=== PATIENT | female | born 1990 | race Hispanic/Latino ===

== ENCOUNTER 2016-08-18 00:32 | Inpatient (IN) | payer OTHER ==
--- NOTE | 2016-08-18 00:55 | Emergency Department Report ---
History of Present Illness - General Chief Complaint: Medical Clearance Stated Complaint: MED CLEARANCE Time Seen by Provider: 08/18/16 00:40 Source: EMS Mode of arrival: Stretcher Limitations: No Limitations - History of Present Illness Initial Comments: Patient is a 25-year-old female with a history of drug abuse presenting status post heroin overdose. Patient was awaiting to be seen at [facility] when she admittedly injected heroin, became high and altered. EMS was called for patient to be brought to the ER for evaluation. En route patient reports she did do heroin refusing Narcan. Otherwise no other history reported - Related Data Allergies Allergy/AdvReac Type Severity Reaction Status Date / Time No Known Allergies Allergy Unverified 08/18/16 00:43 ED Review of Systems ROS: Stated complaint: MED CLEARANCE Other details as noted in HPI Comment: Unobtainable due to pts medical conditions ED Past Medical Hx - Past Medical History Previous Medical History?: No - Surgical History Past Surgical History?: No - Social History Smoking Status: Current Every Day Smoker Substance Use Type: Alcohol, Heroin ED Physical Exam - General Limitations: No Limitations, Altered Mental Status, Other (heroin abuse) General appearance: in no apparent distress, appears intoxicated, other (easily arousable, following commands and answering questions) - Head Head exam: Present: atraumatic, normocephalic - Eye Eye exam: Present: EOMI, other (pinpoint pupils). Absent: scleral icterus, conjunctival injection, nystagmus Pupils: Present: miosis. Absent: irregular, unequal - ENT ENT exam: Present: mucous membranes moist - Neck Neck exam: Present: normal inspection - Respiratory Respiratory exam: Present: normal lung sounds bilaterally. Absent: respiratory distress, wheezes, rales, rhonchi - Cardiovascular Cardiovascular Exam: Present: regular rate, normal rhythm, normal heart sounds. Absent: irregular rhythm, systolic murmur, diastolic murmur, rubs, gallop - GI/Abdominal GI/Abdominal exam: Present: soft, normal bowel sounds. Absent: distended, tenderness, guarding, rebound, rigid - Extremities Exam Extremities exam: Present: normal inspection, full ROM, normal capillary refill , other (track boo). Absent: tenderness, pedal edema, joint swelling, calf tenderness - Back Exam Back exam: Present: normal inspection - Neurological Exam Neurological exam: Present: altered, CN II-XII intact, other (patient high on heroin). Absent: motor sensory deficit - Psychiatric Psychiatric exam: Present: other (heroin intoxication) - Skin Skin exam: Present: warm, dry, intact, normal color. Absent: rash ED Course Vital Signs 08/18/16 00:48 Pulse Rate 101 H Respiratory 17 Rate Blood Pressure 91/43 [Left] O2 Sat by Pulse 96 Oximetry - Reevaluation(s) Reevaluation #1: 08/18/16 04:30 Pt easily arousable. Pt is tachycardic in the 120's in SR on the monitor. Pt has no complaints. Ordered 2L NS IVF bolus. Reevaluation #2: 08/18/16 06:06 Pt now has fever of 103, will remove blankets. Pt likely having a withdrawal response after reviewed UDS. Ordered ativan 2mg IVP. Continuing IVF Ordered blood cultures 08/18/16 06:09 Case turned over to Dr Kovacs ED Medical Decision Making - Lab Data Result diagrams: 08/18/16 00:58 08/18/16 00:58 - EKG Data -: EKG Interpreted by Me - EKG Data 08/18/16 04:53 Time 442. Sinus tachycardia at 1 29 bpm, QTC 433 ms, left atrial enlargement, no ST changes, no STEMI - Medical Decision Making Given fever, tachycardia and drug history will order antibiotics Vanco and Zosyn to cover for sepsis/endocarditis, awaiting CXR and ordered echo. Case d/w Hospitalist will admit tele Critical care attestation.: If time is entered above; I have spent that time in minutes in the direct care of this critically ill patient, excluding procedure time. ED Disposition Clinical Impression: Anemia, Fever, Polysubstance abuse Disposition: OP ADMITTED IP TO THIS HOSP Is pt being admited?: Yes Condition: Stable
[2016-08-18 01:32] LABS: Anion Gap 18 mmol/L; BUN/Creatinine Ratio 18.33; Blood Urea Nitrogen 11 mg/dL (7-17); Carbon Dioxide 24 mmol/L (22-30); Chloride 99.4 mmol/L (98-107); Glucose 90 mg/dL (65-100); Potassium 3.5 mmol/L (3.6-5.0); Sodium 138 mmol/L (137-145)
[2016-08-18 01:38] LABS: Basophils % (Auto) 0.3 % (0.0-1.8); Eosinophils % (Auto) 0.3 % (0.0-4.3); Hematocrit 25.7 % (30.3-42.9); Hemoglobin 8.4 gm/dl (10.1-14.3); Mean Corpuscular HGB Conc 33 % (30-34); Mean Corpuscular Volume 77 fl (79-97); Platelet Count 203 K/mm3 (140-440); Red Blood Count 3.33 M/mm3 (3.65-5.03); Red Cell Distribution Width 15.9 % (13.2-15.2); White Blood Count 7.2 K/mm3 (4.5-11.0)
[2016-08-18 01:41] LABS: Mean Corpuscular Hemoglobin 25 pg (28-32)
[2016-08-18] MEDS ORDERED: NACL 0.9% 1000 ML 1,000 ML IV ONE ×2 (04:26→05:22)
[2016-08-18 05:06] LABS: Urine Drugs of Abuse Note Disclamer
[2016-08-18 05:25] LABS: Bilirubin,Urine NEG (Negative); Blood,Urine NEG (Negative); Ketones,Urine NEG (Negative); Leukocyte Esterase,Urine SM (Negative); Mucus,Urine 1+ /HPF; Nitrite,Urine NEG (Negative); Urobilinogen,Urine < 2.0 mg/dL (<2.0)
[2016-08-18] MEDS ORDERED: ATIVAN IV ONE ×2 (06:06→20:51)
[2016-08-18] MEDS ORDERED: ZOSYN/NS 4.5GM/100ML 4.5 GM/100 ML VIAL IV ONE (06:08)
--- NOTE | 2016-08-18 07:31 | XRay Report ---
AP CHEST: HISTORY: Fever No comparison. Patchy bilateral lung infiltrates are identified, right greater than left. No large pleural effusion or pneumothorax. Heart and mediastinal structures are within normal limits. Normal bony structures. There is an approximate 8 cm linear structure overlying the mediastinum which is presumably external to the patient. IMPRESSION: Bilateral lung infiltrates.
--- NOTE | 2016-08-18 08:20 | History and Physical Report ---
History of Present Illness Date of examination: 08/18/16 Date of admission: 08/18/2016 Chief complaint: Fever and drug overdose History of present illness: Patient is a 25-year-old female with a history of drug abuse. She presented to Ed with Fever of 103.3. and status post heroin overdose. Patient alert and oriented to self somewhat she was able to describe her pain. She reported pain in left side midway down her ribcage the axilla. Pain is dull about 10/10 in severity and worsen with movement and cough and breathing. Patient also stated that she uses heroin injection on regular basis. Also some crusty lesions noted on her face and upper neck Past History Past Medical History: No medical history Past Surgical History: No surgical history Social history: single, smoking, alcohol abuse, IV drug use, full code Family history: no significant family history Medications and Allergies Allergies Allergy/AdvReac Type Severity Reaction Status Date / Time No Known Allergies Allergy Verified 08/18/16 09:04 Home Medications Medication Instructions Recorded Confirmed Last Taken Type Unobtainable 08/18/16 08/18/16 Unknown History Review of Systems Constitutional: fever, chills, weakness, malaise, lethargy, no weight loss, no weight gain, no sweats, no poor appetite, no daytime sleepiness, no chronic pain Ears, nose, mouth and throat: no ear pain, no tinnitis, no decreased hearing, no nose pain, no nasal discharge Breasts: normal Cardiovascular: no chest pain, no orthopnea, no palpitations, no edema, no syncope, no lightheadedness Respiratory: cough, shortness of breath, no hemoptysis Gastrointestinal: no abdominal pain, no nausea, no vomiting, no diarrhea Genitourinary Female: no pelvic pain, no flank pain, no urinary frequency, no urgency Musculoskeletal: no neck stiffness, no neck pain, no arm numbness/tingling Integumentary: lesions Neurological: no head injury, no weakness, no parathesias, no numbness Psychiatric: no anxiety, no change in sleep habits, no sleep disturbances, no suicidal ideation Endocrine: no cold intolerance, no heat intolerance Hematologic/Lymphatic: no easy bruising, no easy bleeding Exam - Constitutional Vitals: Temp Pulse Resp BP Pulse Ox 103.0 F H 119 H 27 H 111/55 100 08/18/16 05:45 08/18/16 06:30 08/18/16 06:30 08/18/16 06:30 08/18/16 06:30 General appearance: Present: mild distress - EENT Eyes: Present: PERRL ENT: hearing intact, clear oral mucosa - Neck Neck: Present: supple, normal ROM - Respiratory Respiratory effort: normal - Cardiovascular Heart Sounds: Present: S1 & S2. Absent: rub, click - Extremities Extremities: pulses symmetrical, No edema Peripheral Pulses: within normal limits - Abdominal General gastrointestinal: Present: soft, non-tender, non-distended, normal bowel sounds - Rectal Rectal Exam: deferred - Integumentary Integumentary: Present: clear, warm, dry - Musculoskeletal Musculoskeletal: gait normal, strength equal bilaterally - Psychiatric Psychiatric: appropriate mood/affect, intact judgment & insight - Neurologic Neurologic: CNII-XII intact, moves all extremities Results - Labs CBC & Chem 7: 08/18/16 00:58 08/18/16 00:58 Labs: Laboratory Last Values WBC 7.2 K/mm3 (4.5-11.0) 08/18/16 00:58 RBC 3.33 M/mm3 (3.65-5.03) L 08/18/16 00:58 Hgb 8.4 gm/dl (10.1-14.3) L 08/18/16 00:58 Hct 25.7 % (30.3-42.9) L 08/18/16 00:58 MCV 77 fl (79-97) L 08/18/16 00:58 MCH 25 pg (28-32) L 08/18/16 00:58 MCHC 33 % (30-34) 08/18/16 00:58 RDW 15.9 % (13.2-15.2) H 08/18/16 00:58 Plt Count 203 K/mm3 (140-440) 08/18/16 00:58 Lymph % (Auto) 11.3 % (13.4-35.0) L 08/18/16 00:58 [place] % (Auto) 8.2 % (0.0-7.3) H 08/18/16 00:58 Eos % (Auto) 0.3 % (0.0-4.3) 08/18/16 00:58 Baso % (Auto) 0.3 % (0.0-1.8) 08/18/16 00:58 Lymph # 0.8 K/mm3 (1.2-5.4) L 08/18/16 00:58 [place] # 0.6 K/mm3 (0.0-0.8) 08/18/16 00:58 Eos # 0.0 K/mm3 (0.0-0.4) 08/18/16 00:58 Baso # 0.0 K/mm3 (0.0-0.1) 05 00:58 Seg Neutrophils % 79.9 % (40.0-70.0) H 08/18/16 00:58 Seg Neutrophils # 5.7 K/mm3 (1.8-7.7) 08/18/16 00:58 Sodium 138 mmol/L (137-145) 08/18/16 00:58 Potassium 3.5 mmol/L (3.6-5.0) L 08/18/16 00:58 Chloride 99.4 mmol/L (98-107) 08/18/16 00:58 Carbon Dioxide 24 mmol/L (22-30) 08/18/16 00:58 Anion Gap 18 mmol/L 08/18/16 00:58 BUN 11 mg/dL (7-17) 08/18/16 00:58 Creatinine 0.6 mg/dL (0.7-1.2) L 08/18/16 00:58 Estimated GFR > 60 ml/min 08/18/16 00:58 BUN/Creatinine Ratio 18.33 % 08/18/16 00:58 Glucose 90 mg/dL (65-100) 08/18/16 00:58 Calcium 8.0 mg/dL (8.4-10.2) L 08/18/16 00:58 HCG, Qual Negative (Negative) 08/18/16 00:58 Urine Color Yellow (Yellow) 08/18/16 Unknown Urine Turbidity Clear (Clear) 08/18/16 Unknown Urine pH 5.0 (5.0-7.0) 08/18/16 Unknown Ur Specific [place] 1.017 (1.003-1.030) 08/18/16 Unknown Urine Protein 30 mg/dl mg/dL (Negative) 08/18/16 Unknown Urine Glucose (UA) Neg mg/dL (Negative) 08/18/16 Unknown Urine Ketones Neg mg/dL (Negative) 08/18/16 Unknown Urine Blood Neg (Negative) 08/18/16 Unknown Urine Nitrite Neg (Negative) 08/18/16 Unknown Urine Bilirubin Neg (Negative) 08/18/16 Unknown Urine Urobilinogen < 2.0 mg/dL (<2.0) 08/18/16 Unknown Ur Leukocyte Esterase Sm (Negative) 08/18/16 Unknown Urine WBC (Auto) 8.0 /HPF (0.0-6.0) H 08/18/16 Unknown Urine RBC (Auto) 4.0 /HPF (0.0-6.0) 08/18/16 Unknown U Epithel Cells (Auto) 4.0 /HPF (0-13.0) 08/18/16 Unknown Hyaline Casts 2 /LPF 08/18/16 Unknown Urine Mucus 1+ /HPF 08/18/16 Unknown Salicylates < 0.3 mg/dL (2.8-20.0) L 08/18/16 00:58 Urine Opiates Screen Presumptive positive 08/18/16 Unknown Urine Methadone Screen Presumptive negative 08/18/16 Unknown Acetaminophen < 15.0 ug/mL (10.0-30.0) 08/18/16 00:58 Ur Barbiturates Screen Presumptive negative 08/18/16 Unknown Ur Phencyclidine Scrn Presumptive negative 08/18/16 Unknown Ur Amphetamines Screen Presumptive positive 08/18/16 Unknown U Benzodiazepines Scrn Presumptive positive 08/18/16 Unknown Urine Cocaine Screen Presumptive positive 08/18/16 Unknown U Marijuana (THC) Screen Presumptive positive 08/18/16 Unknown Drugs of Abuse Note Disclamer 08/18/16 Unknown Plasma/Serum Alcohol < 0.01 gm% (0-0.07) 08/18/16 00:58 - Imaging and Cardiology Chest x-ray: pending (Bilateral Lung infiltrates) Abdominal x-ray: pending Assessment and Plan Assessment and plan: ASSESSMENT/PLAN 1. Sepsis Chest X-ray shows bilateral lung infiltration serial of blood cultures done Lactate level done waiting for the result Urine cultures shows high WBC 8.0 start on Abx PT/INR done waiting for result ID consulted 2. Tachycardia HR 120's given 2L NS bolus in the ED patient on continues cardiac monitoring Time Clerk consulted 3. Drug overdose Ativan per [facility] protocol 4. Endocarditis Started on Abx Fever 103.3 on Tylenol to reduce fever Echo done Time Clerk consulted ID consulted 5. Anemia monitor H&H and transfuse PRBC for Hemoglobin <7 5.Hypotension BP on the 90's systolic given 500 NS bolus VTE Prophylaxis Lovonax and Protonix Patient Full Code
[2016-08-18] MEDS ORDERED: NACL 0.9% 500 ML 500 ML IV ONE ×2 (09:00→13:14)
[2016-08-18] MEDS ORDERED: MILK OF MAGNESIA PO PRN (09:00)
[2016-08-18] MEDS ORDERED: NACL 0.9% 500 ML 500 ML ONE ×2 (09:02→13:27)
--- NOTE | 2016-08-18 09:25 | Admit Criteria Form ---
Admission Criteria Documentation: SEPSIS and OTHER FEBRILE ILLNESS, W/O FOCAL INFECTION Clinical Indications for Admission to Inpatient Care ( Place 'X' for any and all applicable criteria): Admission is indicated for ANY ONE of the following (1)(2)(3)(4): [ ] I. Bacteremia [X]II. Suspected or identified specific infection requiring hospitalization (eg, meningitis, endocarditis) [ ]III. Hemodynamic instability [ ]IV. Altered mental status [ ]V. Failure or unavailability of outpatient antimicrobial treatment [ ]. Hypoxemia [ ]VII. Seizures [ ]VIII. High-risk febrile neutropenia [X]IX. Need for parenteral antibiotic in patient who is likely to abuse vascular access device (eg, injection drug user) [A](7) [ ]X. Temperature greater than 104.9 degrees F (40.5 degrees C) (oral) [X ]XI. Inpatient admission required rather than observation care because of ANY ONE of the following: [ ]1) Specific infection identified that is too severe for outpatient treatment or observation care trial [ ]2) Metabolic disorder (eg, hypoglycemia, hyperglycemia, metabolic acidosis) that is severe or persistent [X]3) Temperature greater than 103.1 degrees F (39.5 degrees C) ( oral) that is not responsive to observation care treatment [ ]4) IV fluid to replace significant ongoing (eg, for over 24 hours) losses (> 3 L/m2 per day) [ ]5) Supplemental oxygen or respiratory treatments for over 24 hours that is performable only in acute inpatient setting [ ]6) Parenteral nutrition regimen need that must be implemented on inpatient basis [ ]7) Strict or protective (eg, laminar flow) isolation [ ]8) Other condition, treatment or monitoring requiring inpatient admission Extended stay beyond goal length of stay may be needed for(1)(3) [ ]a) Sepsis or septic shock(22) [ ]b) Positive blood cultures [ ]c) Insufficient oral intake [ ]d) High-risk febrile neutropenia(29)(30) [ ]e) Continued fever and clinical instability [ ]f) Clinically active comorbid illness (e.g,heart failure, renal failure , diabetes) The original [facility] [email or web address] content created by Ruchi Ahuja has been revised. The portions of the content which have been revised are identified through the use of italic text or in bold, and Ruchi [employer]ines has neither reviewed nor approved the modified material. All other unmodified content is copyright [facility]. Please see references footnoted in the original [facility] edition 2016 Admission Criteria Met: Yes
[2016-08-18] MEDS ORDERED: ZOFRAN IV PRN (09:30)
[2016-08-18] MEDS: LOVENOX SUB-Q SCH (09:43)
[2016-08-18] MEDS: ZOSYN/NS 4.5GM/100ML 4.5 GM/100 ML VIAL IV SCH ×3 (09:43→19:22)
[2016-08-18] MEDS: TYLENOL PO PRN (09:44)
[2016-08-18] MEDS: D5NS 1,000 ML IV SCH (09:45)
[2016-08-18] MEDS ORDERED: DULCOLAX PR PRN (10:00)
[2016-08-18] MEDS ORDERED: PROTONIX IV ONE (10:00)
[2016-08-18] MEDS ORDERED: VANCOMYCIN PHARMACY TO DOSE IV SCH (12:00)
[2016-08-18] MEDS ORDERED: VANCOMYCIN 1,250 MG in NACL 0.9% 250ML 250 ML IV ONE (12:30)
--- NOTE | 2016-08-18 14:36 | Consultation ---
History of Present Illness Consult date: 08/18/16 Consult reason: other (Abnormal echo) History of present illness: This is a 25yr old female with a history of polysubstance abuse who was sent here after she admittedly injected herself with heroin and became altered. Her initial ECG shows a sinus tachycardia. An echocardiogram done today demonstrates a normal systolic function but there a mass is visualized in the right atrium thus this cardiac consultation. Past History Social history: single, smoking, alcohol abuse, IV drug use, full code Family history: no significant family history Medications and Allergies Allergies Allergy/AdvReac Type Severity Reaction Status Date / Time No Known Allergies Allergy Verified 08/18/16 09:04 Home Medications Medication Instructions Recorded Confirmed Last Taken Type Unobtainable 08/18/16 08/18/16 Unknown History Active Meds: Active Medications Acetaminophen (Tylenol) 650 mg PO Q4H PRN PRN Reason: Pain MILD(1-3)/Fever >100.5/SHIPMAN Last Admin: 08/18/16 09:44 Dose: 650 mg Bisacodyl (Dulcolax) 10 mg [place] QDAY PRN PRN Reason: Constipation unrelieved by MOM Enoxaparin Sodium (Lovenox) 40 mg SUB-Q QDAY MURALI Last Admin: 08/18/16 09:43 Dose: 40 mg Dextrose/Sodium Chloride (D5ns) 1,000 mls @ 75 mls/hr IV DIRECT MURALI Last Admin: 08/18/16 09:45 Dose: 75 mls/hr Piperacillin Sod/Tazobactam Sod (Zosyn/Ns 4.5gm/100ml) 4.5 gm in 100 mls @ 200 mls/hr IV Q6HR MURALI PRN Reason: Protocol Last Admin: 08/18/16 11:58 Dose: 200 mls/hr Vancomycin HCl (Vancomycin/Ns 1 Gm/250 Ml) 1 gm in 250 mls @ 166.667 mls/hr IV Q12H MURALI Lorazepam (Ativan) 1 mg IV Q4H PRN PRN Reason: Overdose Magnesium Hydroxide (Milk Of Magnesia) 30 ml PO Q4H PRN PRN Reason: Constipation Ondansetron HCl (Zofran) 4 mg IV Q8H PRN PRN Reason: n/v Vancomycin HCl (Vancomycin Pharmacy To Dose) 1 each IV PKCONSULT MURALI PRN Reason: Protocol Physical Examination Vital Signs Pulse Resp BP Pulse Ox 101 H 17 91/43 96 08/18/16 00:48 08/18/16 00:48 08/18/16 00:48 08/18/16 00:48 General appearance: no acute distress Cardiac: Positive: Tachycardia Results 08/18/16 00:58 08/18/16 00:58 Assessment and Plan Polysubstance abuse Fever Anemia Echocardiogram done today shows a normal systolic function but there is a mass visualized in the right atrium. Plan: We will get a JOSE for further cardiac evaluation.
[2016-08-18] MEDS: ATIVAN IV PRN (19:23)
[2016-08-18] MEDS ORDERED: APRESOLINE IV PRN (21:36)
[2016-08-19] MEDS: ZOSYN/NS 4.5GM/100ML 4.5 GM/100 ML VIAL IV SCH ×3 (00:54→11:59)
[2016-08-19] MEDS: D5NS 1,000 ML IV SCH (00:58)
[2016-08-19] MEDS ORDERED: VANCOMYCIN/NS 1 GM/250 ML 1 GM/250 ML BAG IV SCH (01:00)
[2016-08-19] MEDS: ATIVAN IV PRN ×4 (05:52→21:13)
[2016-08-19] MEDS: TYLENOL PO PRN ×2 (06:00→21:12)
[2016-08-19 09:02] LABS: Basophils % (Auto) 0.3 % (0.0-1.8); Eosinophils % (Auto) 0.7 % (0.0-4.3); Hematocrit 27.9 % (30.3-42.9); Mean Corpuscular HGB Conc 32 % (30-34); Mean Corpuscular Volume 78 fl (79-97); Platelet Count 201 K/mm3 (140-440); Red Cell Distribution Width 15.5 % (13.2-15.2); White Blood Count 5.9 K/mm3 (4.5-11.0)
[2016-08-19 09:08] LABS: Mean Corpuscular Hemoglobin 25 pg (28-32)
[2016-08-19 09:12] LABS: INR 1.25 (0.87-1.13)
[2016-08-19 09:13] LABS: Partial Thromboplastin Time 40.5 Sec. (24.2-36.6)
[2016-08-19 09:20] LABS: Alanine Aminotransferase 14 units/L (7-56); Albumin 1.9 g/dL (3.9-5); Albumin/Globulin Ratio 0.6 %; Alkaline Phosphatase 92 units/L (35-129); Anion Gap 17 mmol/L; Blood Urea Nitrogen 8 mg/dL (7-17); Calcium 7.7 mg/dL (8.4-10.2); Carbon Dioxide 21 mmol/L (22-30); Chloride 103.7 mmol/L (98-107); Glucose 84 mg/dL (65-100); Potassium 3.3 mmol/L (3.6-5.0); Sodium 138 mmol/L (137-145)
--- NOTE | 2016-08-19 09:34 | Progress Note ---
Assessment and Plan Assessment and plan: 25-year-old woman with a past medical history of heroine abuse, IV drug use who presented with fever and confusion 1. Gram Positive septicemia Blood cultures growing gram positive cocci in clusters Appropriate antibiotics, ID has been consulted, suspect endocarditis, workup in place She was initially hypotensive, but responded to fluid resuscitation 2. Suspected endocarditis Follow-up daily blood cultures, follow-up JOSE, ID consult 3. Pneumonia Continue antibiotics as above 4. Metabolic encephalopathy Most likely due to drug intoxication and sepsis, improving Continue 1013 for now 5. Moderate malnutrition Nutrition consult encourage parents diets 6. Hypokalemia Replete and recheck DVT prophylaxis Lovenox History Interval history: No complaints today she denies fevers, denies chills., had nurse reported that she had MRSA in her blood cultures. Hospitalist Physical - Physical exam Narrative exam: General: Patient appears well in no distress HEENT: MMM, EOMI cardiac: S1-S2 heard lungs: clear to auscultation, abdomen: soft, nontender, nondistended bowel sounds positive extremities: no edema clubbing or cyanosis Skin: no rash or lesion Neuro: no focal deficit Psych: appropriate behavior and mood, cognition intact - Constitutional Vitals: Temp Pulse Resp BP Pulse Ox 97.6 F 68 18 101/64 96 08/19/16 03:48 08/19/16 08:35 08/19/16 03:48 08/19/16 03:48 08/19/16 03:48 General appearance: Present: no acute distress Results - Labs CBC & Chem 7: 08/19/16 08:45 08/19/16 08:45 Labs: Laboratory Last Values WBC 5.9 K/mm3 (4.5-11.0) 08/19/16 08:45 RBC 3.60 M/mm3 (3.65-5.03) L 08/19/16 08:45 Hgb 9.0 gm/dl (10.1-14.3) L 08/19/16 08:45 Hct 27.9 % (30.3-42.9) L 08/19/16 08:45 MCV 78 fl (79-97) L 08/19/16 08:45 MCH 25 pg (28-32) L 08/19/16 08:45 MCHC 32 % (30-34) 08/19/16 08:45 RDW 15.5 % (13.2-15.2) H 08/19/16 08:45 Plt Count 201 K/mm3 (140-440) 08/19/16 08:45 Lymph % (Auto) 14.0 % (13.4-35.0) 08/19/16 08:45 [place] % (Auto) 9.5 % (0.0-7.3) H 08/19/16 08:45 Eos % (Auto) 0.7 % (0.0-4.3) 08/19/16 08:45 Baso % (Auto) 0.3 % (0.0-1.8) 08/19/16 08:45 Lymph # 0.8 K/mm3 (1.2-5.4) L 08/19/16 08:45 [place] # 0.6 K/mm3 (0.0-0.8) 08/19/16 08:45 Eos # 0.0 K/mm3 (0.0-0.4) 08/19/16 08:45 Baso # 0.0 K/mm3 (0.0-0.1) 08/19/16 08:45 Seg Neutrophils % 75.5 % (40.0-70.0) H 08/19/16 08:45 Seg Neutrophils # 4.5 K/mm3 (1.8-7.7) 08/19/16 08:45 PT 15.6 Sec. (12.2-14.9) H 08/19/16 08:45 INR 1.25 (0.87-1.13) H 08/19/16 08:45 APTT 40.5 Sec. (24.2-36.6) H 08/19/16 08:45 Sodium 138 mmol/L (137-145) 08/19/16 08:45 Potassium 3.3 mmol/L (3.6-5.0) L 08/19/16 08:45 Chloride 103.7 mmol/L (98-107) 08/19/16 08:45 Carbon Dioxide 21 mmol/L (22-30) L 08/19/16 08:45 Anion Gap 17 mmol/L 08/19/16 08:45 BUN 8 mg/dL (7-17) 08/19/16 08:45 Creatinine 0.4 mg/dL (0.7-1.2) L 08/19/16 08:45 Estimated GFR > 60 ml/min 08/19/16 08:45 BUN/Creatinine Ratio 20.00 % 08/19/16 08:45 Glucose 84 mg/dL (65-100) 08/19/16 08:45 Lactic Acid 0.50 mmol/L (0.7-2.0) L 08/18/16 12:35 Calcium 7.7 mg/dL (8.4-10.2) L 08/19/16 08:45 Total Bilirubin 0.30 mg/dL (0.1-1.2) 08/19/16 08:45 AST 17 units/L (5-40) 08/19/16 08:45 ALT 14 units/L (7-56) 08/19/16 08:45 Alkaline Phosphatase 92 units/L (35-129) 08/19/16 08:45 Total Protein 5.0 g/dL (6.3-8.2) L 08/19/16 08:45 Albumin 1.9 g/dL (3.9-5) L 08/19/16 08:45 Albumin/Globulin Ratio 0.6 % 08/19/16 08:45 HCG, Qual Negative (Negative) 08/18/16 00:58 Urine Color Yellow (Yellow) 08/18/16 Unknown Urine Turbidity Clear (Clear) 08/18/16 Unknown Urine pH 5.0 (5.0-7.0) 08/18/16 Unknown Ur Specific [place] 1.017 (1.003-1.030) 08/18/16 Unknown Urine Protein 30 mg/dl mg/dL (Negative) 08/18/16 Unknown Urine Glucose (UA) Neg mg/dL (Negative) 08/18/16 Unknown Urine Ketones Neg mg/dL (Negative) 08/18/16 Unknown Urine Blood Neg (Negative) 08/18/16 Unknown Urine Nitrite Neg (Negative) 08/18/16 Unknown Urine Bilirubin Neg (Negative) 08/18/16 Unknown Urine Urobilinogen < 2.0 mg/dL (<2.0) 08/18/16 Unknown Ur Leukocyte Esterase Sm (Negative) 08/18/16 Unknown Urine WBC (Auto) 8.0 /HPF (0.0-6.0) H 08/18/16 Unknown Urine RBC (Auto) 4.0 /HPF (0.0-6.0) 08/18/16 Unknown U Epithel Cells (Auto) 4.0 /HPF (0-13.0) 08/18/16 Unknown Hyaline Casts 2 /LPF 08/18/16 Unknown Urine Mucus 1+ /HPF 08/18/16 Unknown Salicylates < 0.3 mg/dL (2.8-20.0) L 08/18/16 00:58 Urine Opiates Screen Presumptive positive 08/18/16 Unknown Urine Methadone Screen Presumptive negative 08/18/16 Unknown Acetaminophen < 15.0 ug/mL (10.0-30.0) 08/18/16 00:58 Ur Barbiturates Screen Presumptive negative 08/18/16 Unknown Ur Phencyclidine Scrn Presumptive negative 08/18/16 Unknown Ur Amphetamines Screen Presumptive positive 08/18/16 Unknown U Benzodiazepines Scrn Presumptive positive 08/18/16 Unknown Urine Cocaine Screen Presumptive positive 08/18/16 Unknown U Marijuana (THC) Screen Presumptive positive 08/18/16 Unknown Drugs of Abuse Note Disclamer 08/18/16 Unknown Plasma/Serum Alcohol < 0.01 gm% (0-0.07) 08/18/16 00:58
[2016-08-19] MEDS ORDERED: K-DUR PO NR (10:00)
--- NOTE | 2016-08-19 11:35 | Progress Note ---
Assessment and Plan Polysubstance abuse Fever Anemia MRSA bacteremia Echocardiogram done today shows a normal systolic function but there is a mass visualized in the right atrium. Plan: JOSE has been rescheduled for tomorrow morning. Patient agrees to proceed. Subjective Date of service: 08/19/16 Interval history: Patient is resting in bed comfortably. Sitter at bedside. She has no chest pain or shortness of breath. Objective Vital Signs Temp Pulse Pulse Resp BP BP Pulse Ox 08/19/16 09:54 97.8 F 66 18 108/71 96 08/19/16 08:35 68 08/19/16 03:48 97.6 F 67 18 101/64 96 08/19/16 00:27 98.9 F 86 18 87/55 90 08/18/16 21:07 98.1 F 78 18 99/76 99 08/18/16 21:06 116 H 20 92/57 94 08/18/16 20:15 95 08/18/16 20:00 106 H 08/18/16 18:30 89 26 H 98/63 99 08/18/16 18:15 84 25 H 98/60 100 08/18/16 18:00 85 25 H 100/59 100 08/18/16 17:45 84 25 H 98/63 08/18/16 17:30 83 26 H 94/56 100 08/18/16 17:15 83 25 H 92/53 100 08/18/16 17:00 89 23 97/56 100 08/18/16 16:45 83 25 H 97/56 08/18/16 16:30 84 26 H 91/55 100 08/18/16 16:15 82 26 H 91/54 100 08/18/16 16:00 83 27 H 95/52 08/18/16 15:45 84 24 93/55 99 08/18/16 15:30 82 22 93/55 98 08/18/16 15:15 78 24 95/55 100 08/18/16 15:00 78 23 93/55 100 08/18/16 14:45 74 19 95/56 100 08/18/16 14:30 77 21 91/56 100 08/18/16 14:15 79 23 92/53 08/18/16 14:00 79 22 92/53 08/18/16 13:45 80 22 91/51 08/18/16 13:30 83 24 91/48 99 08/18/16 13:15 83 22 91/48 99 08/18/16 13:00 85 25 H 88/47 99 08/18/16 12:45 80 23 93/52 08/18/16 12:30 90 25 H 89/46 08/18/16 12:15 90 23 92/47 98 08/18/16 12:00 98 F 91 H 22 92/45 98 08/18/16 11:45 92 H 23 93/44 99 - Physical Examination General: No Apparent Distress HEENT: Positive: PERRL Neck: Positive: trachea midline Cardiac: Positive: Reg Rate and Rhythm - Labs and Meds Cardiac Enzymes 08/19/16 Range/Units 08:45 AST 17 (5-40) units/L Coagulation 08/19/16 Range/Units 08:45 PT 15.6 H (12.2-14.9) Sec. INR 1.25 H (0.87-1.13) APTT 40.5 H (24.2-36.6) Sec. CBC 08/19/16 Range/Units 08:45 WBC 5.9 (4.5-11.0) K/mm3 RBC 3.60 L (3.65-5.03) M/mm3 Hgb 9.0 L (10.1-14.3) gm/dl Hct 27.9 L (30.3-42.9) % Plt Count 201 (140-440) K/mm3 Lymph # 0.8 L (1.2-5.4) K/mm3 [place] # 0.6 (0.0-0.8) K/mm3 Eos # 0.0 (0.0-0.4) K/mm3 Baso # 0.0 (0.0-0.1) K/mm3 Comprehensive Metabolic Panel 08/19/16 Range/Units 08:45 Sodium 138 (137-145) mmol/L Potassium 3.3 L (3.6-5.0) mmol/L Chloride 103.7 (98-107) mmol/L Carbon Dioxide 21 L (22-30) mmol/L BUN 8 (7-17) mg/dL Creatinine 0.4 L (0.7-1.2) mg/dL Glucose 84 (65-100) mg/dL Calcium 7.7 L (8.4-10.2) mg/dL AST 17 (5-40) units/L ALT 14 (7-56) units/L Alkaline Phosphatase 92 (35-129) units/L Total Protein 5.0 L (6.3-8.2) g/dL Albumin 1.9 L (3.9-5) g/dL
[2016-08-19] MEDS: LOVENOX SUB-Q SCH (12:00)
--- NOTE | 2016-08-19 12:16 | Consultation ---
History of Present Illness - Reason for Consult Consult date: 08/19/16 Fever - History of Present Illness Ms. Vela is a 25-year-old female PWID presenting with fever to 103 deg F and hypotension. Blood cultures obtained on admission are positive for growth of MRSA. A 2-D echocardiogram shows a suspicious density in the right atrium concerning for infective endocarditis. She is currently on Vancomycin and Zosyn empirically. ID is consulted for further treatment recommendations. Past History Past Medical History: No medical history Past Surgical History: No surgical history Social history: single, smoking, alcohol abuse, IV drug use, full code Family history: no significant family history Medications and Allergies Allergies Allergy/AdvReac Type Severity Reaction Status Date / Time No Known Allergies Allergy Verified 08/18/16 09:04 Home Medications Medication Instructions Recorded Confirmed Last Taken Type ALPRAZolam [Xanax TAB] 0.5 mg PO BID PRN 08/19/16 08/19/16 3 Days Ago History Quetiapine Fumarate [Seroquel] 100 mg PO QHS 08/19/16 08/19/16 1 Day Ago History Topiramate [Topamax] 25 mg PO DAILY 08/19/16 08/19/16 3 Days Ago History Active Meds: Active Medications Acetaminophen (Tylenol) 650 mg PO Q4H PRN PRN Reason: Pain MILD(1-3)/Fever >100.5/SHIPMAN Last Admin: 08/19/16 06:00 Dose: 650 mg Bisacodyl (Dulcolax) 10 mg NV QDAY PRN PRN Reason: Constipation unrelieved by MOM Enoxaparin Sodium (Lovenox) 40 mg SUB-Q QDAY MURALI Last Admin: 08/19/16 12:00 Dose: 40 mg Dextrose/Sodium Chloride (D5ns) 1,000 mls @ 75 mls/hr IV DIRECT MURALI Last Admin: 08/19/16 00:58 Dose: 75 mls/hr Piperacillin Sod/Tazobactam Sod (Zosyn/Ns 4.5gm/100ml) 4.5 gm in 100 mls @ 200 mls/hr IV Q6HR MURALI PRN Reason: Protocol Last Admin: 08/19/16 11:59 Dose: 200 mls/hr Vancomycin HCl (Vancomycin/Ns 1 Gm/250 Ml) 1 gm in 250 mls @ 166.667 mls/hr IV Q8HR MURALI Lorazepam (Ativan) 1 mg IV Q4H PRN PRN Reason: Overdose Last Admin: 08/19/16 10:16 Dose: 1 mg Magnesium Hydroxide (Milk Of Magnesia) 30 ml PO Q4H PRN PRN Reason: Constipation Ondansetron HCl (Zofran) 4 mg IV Q8H PRN PRN Reason: n/v Vancomycin HCl (Vancomycin Pharmacy To Dose) 1 each IV PKCONSULT MURALI PRN Reason: Protocol Review of Systems All systems: negative Constitutional: fever, chills, sweats Cardiovascular: no shortness of breath Respiratory: cough Gastrointestinal: no abdominal pain, no nausea, no vomiting, no diarrhea Integumentary: no rash Psychiatric: confusion, irritability Physical Examination - Constitutional Vitals: Vital Signs Temp Pulse Resp BP Pulse Ox 97.8 F 66 18 108/71 96 08/19/16 09:54 08/19/16 09:54 08/19/16 09:54 08/19/16 09:54 08/19/16 09:54 Temperature -Last 24 Hours Temperature 97.8 F Temperature 97.6 F Temperature 98.9 F Temperature 98.1 F General appearance: Present: other (mild withdrawal signs, anxious) - EENT Eyes: Absent: conjunctival injection - Neck Neck: Present: supple - Respiratory Respiratory: bilateral: CTA, negative: rhonchi - Cardiovascular Rhythm: regular Heart Sounds: Present: S1 & S2. Absent: systolic murmur - Extremities Extremities: No edema Extremity abnormal: other (no peripheral stigmata of endocarditis) - Abdominal General gastrointestinal: Present: soft, non-tender, non-distended - Integumentary Integumentary: Absent: rash - Psychiatric Psychiatric: appropriate mood/affect Results - Labs CBC & Chem 7: 08/19/16 08:45 08/19/16 08:45 Labs: Abnormal lab results 08/18/16 08/19/16 08/19/16 Range/Units 12:35 08:45 08:45 RBC 3.60 L (3.65-5.03) M/mm3 Hgb 9.0 L (10.1-14.3) gm/dl Hct 27.9 L (30.3-42.9) % MCV 78 L (79-97) fl MCH 25 L (28-32) pg RDW 15.5 H (13.2-15.2) % [place] % (Auto) 9.5 H (0.0-7.3) % Lymph # 0.8 L (1.2-5.4) K/mm3 Seg Neutrophils % 75.5 H (40.0-70.0) % PT 15.6 H (12.2-14.9) Sec. INR 1.25 H (0.87-1.13) APTT 40.5 H (24.2-36.6) Sec. Potassium (3.6-5.0) mmol/L Carbon Dioxide (22-30) mmol/L Creatinine (0.7-1.2) mg/dL Lactic Acid 0.50 L (0.7-2.0) mmol/L Calcium (8.4-10.2) mg/dL Total Protein (6.3-8.2) g/dL Albumin (3.9-5) g/dL 08/19/16 Range/Units 08:45 RBC (3.65-5.03) M/mm3 Hgb (10.1-14.3) gm/dl Hct (30.3-42.9) % MCV (79-97) fl MCH (28-32) pg RDW (13.2-15.2) % [place] % (Auto) (0.0-7.3) % Lymph # (1.2-5.4) K/mm3 Seg Neutrophils % (40.0-70.0) % PT (12.2-14.9) Sec. INR (0.87-1.13) APTT (24.2-36.6) Sec. Potassium 3.3 L (3.6-5.0) mmol/L Carbon Dioxide 21 L (22-30) mmol/L Creatinine 0.4 L (0.7-1.2) mg/dL Lactic Acid (0.7-2.0) mmol/L Calcium 7.7 L (8.4-10.2) mg/dL Total Protein 5.0 L (6.3-8.2) g/dL Albumin 1.9 L (3.9-5) g/dL Microbiology 08/18/16 07:37 Urine,Clean Catch Urine Culture - Preliminary 08/18/16 06:11 Peripheral/Venous Blood Culture - Preliminary Methicillin Resist S. Aureus 08/18/16 06:11 Peripheral/Venous Blood Culture - Preliminary Methicillin Resist S. Aureus - Imaging and Cardiology Chest x-ray: report reviewed (bilateral lung infiltrates) Assessment and Plan - Patient Problems (1) Endocarditis Current Visit: Yes Status: Acute Qualifiers: Endocarditis type: infective Infective endocarditis organism: bacterial Chronicity: acute Qualified Code(s): I33.0 - Acute and subacute infective endocarditis Plan to address problem: 1. Continue Vancomycin at goal trough 15-20 with the addition of Gentamicin x 5 days. 2. A JOSE may be helpful in clarifying the lesion and quantifying its size to best determine a management plan. 3. Although a prolonged course of antibiotics is anticipated, I would NOT place a PICC line. There MAY be suitable oral options if medical management alone is feasible. 4. Will screen for other infections potentially transmitted by IVDU.
[2016-08-19] MEDS: VANCOMYCIN/NS 1 GM/250 ML 1 GM/250 ML BAG IV SCH ×2 (15:38→21:14)
[2016-08-19] MEDS: GARAMYCIN 200 MG in NACL 0.9% 100 ML IV SCH (15:38)
[2016-08-19 17:16] LABS: HIV-1 Antigen p24 Non React (Non React); HIVR-1/2 Ab Non React (Non React)
[2016-08-20] MEDS ORDERED: XYLOCAINE MPF 2% ONE (00:24)
[2016-08-20] MEDS: VANCOMYCIN/NS 1 GM/250 ML 1 GM/250 ML BAG IV SCH (05:29)
[2016-08-20] MEDS: D5NS 1,000 ML IV SCH (05:31)
[2016-08-20] MEDS: ATIVAN IV PRN ×2 (05:31→10:02)
[2016-08-20] MEDS ORDERED: HURRICAINE ONE 20% TOPICAL SPRAY MM NR (07:00)
[2016-08-20] MEDS ORDERED: DIPRIVAN 10 MG/ML 1,000 MG/100 ML BOTTLE IV ONE (07:37)
[2016-08-20] MEDS ORDERED: DILAUDID ONE (07:38)
[2016-08-20] MEDS ORDERED: HURRICAINE ONE 20% TOPICAL SPRAY MM (07:51)
--- NOTE | 2016-08-20 07:52 | Anesthesia Consultation ---
Anesthesia Consult and Med Hx - Airway Anesthetic Teeth Evaluation: Poor ROM Head & Neck: Adequate Mental/Hyoid Distance: Adequate Mallampati Class: Class II Intubation Access Assessment: Probably Good - Pulmonary Exam CTA: Yes - Cardiac Exam Cardiac Exam: RRR (loud murmur; has right atrial mass) - Pre-Operative Health Status ASA Pre-Surgery Classification: ASA3, ASA4 Proposed Anesthetic Plan: MAC (pt [id number], recent heroin overdose, uses multiple drugs, mass on atrium) - Other Systems Hx Substance Use: Yes (recent overdose of heroin; MRSA from drug habits)
[2016-08-20] MEDS ORDERED: NACL 0.9% 1000 ML 1,000 ML ONE (08:03)
--- NOTE | 2016-08-20 09:04 | Progress Note ---
Assessment and Plan - Patient Problems (1) Endocarditis Current Visit: Yes Status: Acute Qualifiers: Endocarditis type: infective Infective endocarditis organism: bacterial Chronicity: acute Qualified Code(s): I33.0 - Acute and subacute infective endocarditis Plan to address problem: 1. Very high Vancomycin JAIRON. Will change to Daptomycin pending the results of JOSE. Continue Gentamicin. 2. An oral regimen of Zyvox may be a feasible option for the patient. I have discussed this with case management to assist in getting an indigent supply of this medication. A prescription has been placed on the patient's chart. 3. Await result of repeat blood culture and echocardiogram. Subjective Date of service: 08/20/16 Interval history: Remains afebrile. Planned JOSE today, but patient absconded. Objective - Exam Narrative Exam: agitated - Constitutional Vitals: Vital Signs Temp Pulse Resp BP Pulse Ox 98.6 F 130 H 16 113/80 100 08/20/16 06:36 08/20/16 08:43 08/20/16 08:43 08/20/16 08:43 08/20/16 08:32 Temperature -Last 24 Hours Temperature 98.6 F Temperature 99.5 F Temperature 98.6 F Temperature 97.8 F - EENT Eyes: no conjunctival injection - Neck Neck: supple - Respiratory Respiratory effort: normal Respiratory: bilateral: CTA, negative: wheezing - Cardiovascular Rhythm: regular (tachycardic) Heart Sounds: Present: S1 & S2 Extremities: No edema (no peripheral stigmata of endocarditis) - Gastrointestinal General gastrointestinal: Present: soft, non-distended - Integumentary Integumentary: no jaundice, no rash - Neurologic Neurologic: no focal deficits, moves all extremities - Psychiatric Psychiatric: agitated - Labs CBC & Chem 7: 08/19/16 08:45 08/19/16 08:45 Labs: Abnormal lab results 08/19/16 08/19/16 08/19/16 Range/Units 08:45 08:45 08:45 RBC 3.60 L (3.65-5.03) M/mm3 Hgb 9.0 L (10.1-14.3) gm/dl Hct 27.9 L (30.3-42.9) % MCV 78 L (79-97) fl MCH 25 L (28-32) pg RDW 15.5 H (13.2-15.2) % [place] % (Auto) 9.5 H (0.0-7.3) % Lymph # 0.8 L (1.2-5.4) K/mm3 Seg Neutrophils % 75.5 H (40.0-70.0) % PT 15.6 H (12.2-14.9) Sec. INR 1.25 H (0.87-1.13) APTT 40.5 H (24.2-36.6) Sec. Potassium 3.3 L (3.6-5.0) mmol/L Carbon Dioxide 21 L (22-30) mmol/L Creatinine 0.4 L (0.7-1.2) mg/dL Calcium 7.7 L (8.4-10.2) mg/dL Total Protein 5.0 L (6.3-8.2) g/dL Albumin 1.9 L (3.9-5) g/dL Microbiology 08/18/16 07:37 Urine,Clean Catch Urine Culture - Preliminary 08/18/16 06:11 Peripheral/Venous Blood Culture - Preliminary Methicillin Resist S. Aureus 08/19/16 16:04 Peripheral/Venous Blood Culture - Preliminary Culture in Progress 08/19/16 16:04 Peripheral/Venous Blood Culture - Preliminary Culture in Progress 08/18/16 06:11 Peripheral/Venous Blood Culture - Preliminary Methicillin Resist S. Aureus
--- NOTE | 2016-08-20 09:44 | Anesthesia Day of Surgery ---
Anesthesia Day of Surgery - Day of Surgery Patient Examined: Yes Patient H&P Reviewed: Yes Patient is NPO: Yes
[2016-08-20] MEDS ORDERED: HEPARIN/NS 5000 UNIT/500ML(CATH LAB) 500 ML IR ONE (09:59)
[2016-08-20] MEDS ORDERED: HEPARIN 10,000 UNITS/10 ML ONE (09:59)
[2016-08-20] MEDS ORDERED: CALAN ONE (09:59)
[2016-08-20] MEDS ORDERED: NITROGLYCERIN SYRINGE 0 ML ONE (09:59)
[2016-08-20] MEDS ORDERED: XYLOCAINE 2% INFILTRATI ONE (09:59)
[2016-08-20] MEDS ORDERED: CUBICIN IV SCH (10:00)
[2016-08-20] MEDS ORDERED: NACL 0.9% IV SCH (10:00)
[2016-08-20] MEDS ORDERED: VERSED ONE (10:01)
[2016-08-20] MEDS ORDERED: SUBLIMAZE ONE (10:01)
[2016-08-20] MEDS: LOVENOX SUB-Q SCH (10:08)
[2016-08-20] MEDS ORDERED: ATIVAN IV ONE (11:30)
[2016-08-20] MEDS ORDERED: ATIVAN IV NR ×2 (11:45→20:00)
--- NOTE | 2016-08-20 12:43 | Progress Note ---
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 vegetation Vegetation extends to the right atrial free wall Severe eccentric TR with a dilated RA Small possible vegetation on the right coronary cusp of the aortic valve, no or AR noted MRSA bacteremia Heroin abuse Anemia Recommendations: Continue IV antibiotics per ID recommendations Discussed with cardiothoracic surgery at [place] Patient ultimately will need TV surgery but cannot be performed now Patient has to show signs of heroin abstinence before proceeding with valve surgery Patient has to go through rehab first, surgery will be performed after that Subjective Date of service: 08/20/16 Principal diagnosis: MRSA bacteremia Interval history: JOSE done - no complications Objective Vital Signs Temp Pulse Pulse Pulse Pulse Resp Resp 08/20/16 09:08 79 08/20/16 08:46 78 08/20/16 08:43 130 H 08/20/16 08:40 102 H 08/20/16 08:35 100 H 08/20/16 08:32 94 H 08/20/16 08:30 79 08/20/16 08:13 83 08/20/16 06:36 98.6 F 74 20 08/19/16 22:00 85 18 08/19/16 21:26 18 08/19/16 21:12 18 08/19/16 20:44 08/19/16 20:00 99.5 F 82 18 08/19/16 18:06 98.6 F 79 16 08/19/16 13:30 Resp Resp BP BP BP Pulse Ox Pulse Ox 08/20/16 09:08 20 113/67 08/20/16 08:46 20 112/70 08/20/16 08:43 16 113/80 08/20/16 08:40 20 116/74 08/20/16 08:35 22 128/83 08/20/16 08:32 22 129/77 100 08/20/16 08:30 20 139/104 93 08/20/16 08:13 16 125/74 100 08/20/16 06:36 110/64 93 08/19/16 22:00 08/19/16 21:26 98 08/19/16 21:12 08/19/16 20:44 100 08/19/16 20:00 121/82 98 08/19/16 18:06 107/70 94 08/19/16 13:30 95 Pulse Ox 08/20/16 09:08 95 08/20/16 08:46 08/20/16 08:43 08/20/16 08:40 08/20/16 08:35 08/20/16 08:32 08/20/16 08:30 08/20/16 08:13 08/20/16 06:36 08/19/16 22:00 08/19/16 21:26 08/19/16 21:12 08/19/16 20:44 08/19/16 20:00 08/19/16 18:06 08/19/16 13:30 - Physical Examination General: No Apparent Distress HEENT: Positive: PERRL Neck: Positive: trachea midline Cardiac: Positive: Reg Rate and Rhythm, Systolic Murmur Lungs: Positive: Normal Exam
[2016-08-20] MEDS: TYLENOL PO PRN (13:38)
--- NOTE | 2016-08-20 15:38 | Progress Note ---
Assessment and Plan Assessment and plan: 25-year-old woman with a past medical history of heroine abuse, IV drug use who presented with fever and confusion 1. Gram Positive septicemia due to MRSA She was initially hypotensive, but responded to fluid resuscitation continue Abx, will need to be dc on zyvox as she cannot be trusted with PICC line given recent/ongoing IVDA Cardiology input appreciated Discussed with cardiothoracic surgery at [facility] Patient ultimately will need TV surgery but cannot be performed now Patient has to show signs of heroin abstinence before proceeding with valve surgery Patient has to go through rehab first, surgery will be performed after that 2. Acute endocarditis Due to MRSA Infectious disease consult appreciated, patient will need to go on oral Zyvox to complete treatment for endocarditis. We'll avoid PICC line due to ongoing IV drug abuse 3. Pneumonia Continue antibiotics as above 4. Metabolic encephalopathy Most likely due to drug intoxication and sepsis, improving Continue 1013 for now, awaiting psych consult 5. Moderate malnutrition Nutrition consult encourage parents diets 6. Hypokalemia Replete and recheck 7. Posttraumatic chest pain Obtain chest x-ray, analgesics DVT prophylaxis Lovenox History Interval history: No complaints today she denies fevers, denies chills., she tried to abscond when she was at [facility], and while running she fell on her chest and is c/o dull pain in her chest, pleurisy, 07/05, no radiation, which occured after trauma Hospitalist Physical - Physical exam Narrative exam: General: Patient appears well in no distress HEENT: MMM, EOMI cardiac: S1-S2 heard lungs: clear to auscultation, abdomen: soft, nontender, nondistended bowel sounds positive extremities: no edema clubbing or cyanosis Skin: no rash or lesion Neuro: no focal deficit Psych: appropriate behavior and mood, cognition intact - Constitutional Vitals: Temp Pulse Resp BP Pulse Ox 98.6 F 79 20 113/67 95 08/20/16 06:36 08/20/16 09:08 08/20/16 09:08 08/20/16 09:08 08/20/16 09:08 General appearance: Present: other (mild withdrawal signs, anxious) Results - Labs CBC & Chem 7: 08/19/16 08:45 08/19/16 08:45 Labs: Laboratory Last Values WBC 5.9 K/mm3 (4.5-11.0) 08/19/16 08:45 RBC 3.60 M/mm3 (3.65-5.03) L 08/19/16 08:45 Hgb 9.0 gm/dl (10.1-14.3) L 08/19/16 08:45 Hct 27.9 % (30.3-42.9) L 08/19/16 08:45 MCV 78 fl (79-97) L 08/19/16 08:45 MCH 25 pg (28-32) L 08/19/16 08:45 MCHC 32 % (30-34) 08/19/16 08:45 RDW 15.5 % (13.2-15.2) H 08/19/16 08:45 Plt Count 201 K/mm3 (140-440) 08/19/16 08:45 Lymph % (Auto) 14.0 % (13.4-35.0) 08/19/16 08:45 [place] % (Auto) 9.5 % (0.0-7.3) H 08/19/16 08:45 Eos % (Auto) 0.7 % (0.0-4.3) 08/19/16 08:45 Baso % (Auto) 0.3 % (0.0-1.8) 08/19/16 08:45 Lymph # 0.8 K/mm3 (1.2-5.4) L 08/19/16 08:45 [place] # 0.6 K/mm3 (0.0-0.8) 08/19/16 08:45 Eos # 0.0 K/mm3 (0.0-0.4) 08/19/16 08:45 Baso # 0.0 K/mm3 (0.0-0.1) 08/19/16 08:45 Seg Neutrophils % 75.5 % (40.0-70.0) H 08/19/16 08:45 Seg Neutrophils # 4.5 K/mm3 (1.8-7.7) 08/19/16 08:45 PT 15.6 Sec. (12.2-14.9) H 08/19/16 08:45 INR 1.25 (0.87-1.13) H 08/19/16 08:45 APTT 40.5 Sec. (24.2-36.6) H 08/19/16 08:45 Sodium 138 mmol/L (137-145) 08/19/16 08:45 Potassium 3.3 mmol/L (3.6-5.0) L 08/19/16 08:45 Chloride 103.7 mmol/L (98-107) 08/19/16 08:45 Carbon Dioxide 21 mmol/L (22-30) L 08/19/16 08:45 Anion Gap 17 mmol/L 08/19/16 08:45 BUN 8 mg/dL (7-17) 08/19/16 08:45 Creatinine 0.4 mg/dL (0.7-1.2) L 08/19/16 08:45 Estimated GFR > 60 ml/min 08/19/16 08:45 BUN/Creatinine Ratio 20.00 % 08/19/16 08:45 Glucose 84 mg/dL (65-100) 08/19/16 08:45 Lactic Acid 0.50 mmol/L (0.7-2.0) L 08/18/16 12:35 Calcium 7.7 mg/dL (8.4-10.2) L 08/19/16 08:45 Total Bilirubin 0.30 mg/dL (0.1-1.2) 08/19/16 08:45 AST 17 units/L (5-40) 08/19/16 08:45 ALT 14 units/L (7-56) 08/19/16 08:45 Alkaline Phosphatase 92 units/L (35-129) 08/19/16 08:45 Total Creatine Kinase 48 units/L (30-135) 08/20/16 13:42 Total Protein 5.0 g/dL (6.3-8.2) L 08/19/16 08:45 Albumin 1.9 g/dL (3.9-5) L 08/19/16 08:45 Albumin/Globulin Ratio 0.6 % 08/19/16 08:45 HCG, Qual Negative (Negative) 08/18/16 00:58 Urine Color Yellow (Yellow) 08/18/16 Unknown Urine Turbidity Clear (Clear) 08/18/16 Unknown Urine pH 5.0 (5.0-7.0) 08/18/16 Unknown Ur Specific [place] 1.017 (1.003-1.030) 08/18/16 Unknown Urine Protein 30 mg/dl mg/dL (Negative) 08/18/16 Unknown Urine Glucose (UA) Neg mg/dL (Negative) 08/18/16 Unknown Urine Ketones Neg mg/dL (Negative) 08/18/16 Unknown Urine Blood Neg (Negative) 08/18/16 Unknown Urine Nitrite Neg (Negative) 08/18/16 Unknown Urine Bilirubin Neg (Negative) 08/18/16 Unknown Urine Urobilinogen < 2.0 mg/dL (<2.0) 08/18/16 Unknown Ur Leukocyte Esterase Sm (Negative) 08/18/16 Unknown Urine WBC (Auto) 8.0 /HPF (0.0-6.0) H 08/18/16 Unknown Urine RBC (Auto) 4.0 /HPF (0.0-6.0) 08/18/16 Unknown U Epithel Cells (Auto) 4.0 /HPF (0-13.0) 08/18/16 Unknown Hyaline Casts 2 /LPF 08/18/16 Unknown Urine Mucus 1+ /HPF 08/18/16 Unknown Salicylates < 0.3 mg/dL (2.8-20.0) L 08/18/16 00:58 Urine Opiates Screen Presumptive positive 08/18/16 Unknown Urine Methadone Screen Presumptive negative 08/18/16 Unknown Acetaminophen < 15.0 ug/mL (10.0-30.0) 08/18/16 00:58 Ur Barbiturates Screen Presumptive negative 08/18/16 Unknown Ur Phencyclidine Scrn Presumptive negative 08/18/16 Unknown Ur Amphetamines Screen Presumptive positive 08/18/16 Unknown U Benzodiazepines Scrn Presumptive positive 08/18/16 Unknown Urine Cocaine Screen Presumptive positive 08/18/16 Unknown U Marijuana (THC) Screen Presumptive positive 08/18/16 Unknown Drugs of Abuse Note Disclamer 08/18/16 Unknown Plasma/Serum Alcohol < 0.01 gm% (0-0.07) 08/18/16 00:58 Hep Bs Antigen Non-reactive (Negative) 08/19/16 16:04 Hepatitis C Antibody Non-reactive (NonReactive) 08/19/16 16:04 HIV 1&2 Antibody Rapid Non react (Non React) 08/19/16 16:04 HIV P24 Antigen Non react (Non React) 08/19/16 16:04
[2016-08-20] MEDS: GARAMYCIN 200 MG in NACL 0.9% 100 ML IV SCH (17:04)
--- NOTE | 2016-08-20 17:04 | Consultation ---
History of Present Illness - Reason for Consult Consult date: 08/20/16 Reason for consult: Mental Health Evaluation Requesting physician: NORAH MCLEOD - Chief Complaint Chief complaint: "I want to get off the heroin" - History of Present Psychiatric Illness Patient is a 25-year-old female with a history of drug abuse presenting status post heroin overdose. Today patient is calm and cooperative during the assessment. She stated that she went to [facility] to get help for her drug addiction to multiple substances. Per the ER note, patient injected heroin into her arm prior to being assessed at [facility]. She denies injecting heroin in her arm before her assessment at [facility], stating, "I did not do that." She stated that she want to get off "drugs period." She plan to check herself into a long goods dri[facility] treatment facility in [place], [place] for rehab. She stated she would like to be discharged before Tuesday to attend a close friend' s . She denies SI/HI's, AVH's, or depression symptoms. She denies alcohol consumption (etoh). Medications and Allergies Allergies Allergy/AdvReac Type Severity Reaction Status Date / Time No Known Allergies Allergy Verified 08/18/16 09:04 Home Medications Medication Instructions Recorded Confirmed Last Taken Type ALPRAZolam [Xanax TAB] 0.5 mg PO BID PRN 08/19/16 08/19/16 3 Days Ago History Quetiapine Fumarate [Seroquel] 100 mg PO QHS 08/19/16 08/19/16 1 Day Ago History Topiramate [Topamax] 25 mg PO DAILY 08/19/16 08/19/16 3 Days Ago History Active Meds: Active Medications Acetaminophen/Codeine Phosphate (Tylenol #3) 1 tab PO Q4H PRN PRN Reason: Pain, Moderate (4-6) Bisacodyl (Dulcolax) [address] QDAY PRN PRN Reason: Constipation unrelieved by MOM Enoxaparin Sodium (Lovenox) 40 mg SUB-Q QDAY MURALI Last Admin: 08/20/16 10:08 Dose: 40 mg Dextrose/Sodium Chloride (D5ns) 1,000 mls @ 75 mls/hr IV DIRECT MURALI Last Admin: 08/20/16 05:31 Dose: 75 mls/hr Gentamicin Sulfate 200 mg/ (Sodium Chloride) 105 mls @ 200 mls/hr IV Q24HR MURALI PRN Reason: Protocol Last Admin: 08/19/16 15:38 Dose: 200 mls/hr Daptomycin 420 mg/ Sodium (Chloride) 100 mls @ 200 mls/hr IV Q24H MURALI PRN Reason: Protocol Lorazepam (Ativan) 1 mg IV Q4H PRN PRN Reason: Overdose Last Admin: 08/20/16 10:02 Dose: 1 mg Magnesium Hydroxide (Milk Of Magnesia) 30 ml PO Q4H PRN PRN Reason: Constipation Ondansetron HCl (Zofran) 4 mg IV Q8H PRN PRN Reason: n/v Past psychiatric history - Past Medical History Past Medical History: No medical history Past Surgical History: No surgical history - past Psychiatric treatment and history psychiatric treatment history: Rehab facilities. She denies a fam psy hx. - Social History Social history: other (Live with friend, graduated for ) Mental Status Exam - Vital signs Last Vital Signs Temp 98.0 F 08/20/16 14:35 Pulse 79 08/20/16 09:08 Resp 18 08/20/16 14:35 BP 128/80 08/20/16 14:35 Pulse Ox 97 08/20/16 14:35 - Exam Narrative exam: ROS (-) psychosis MSE: Appearance: calm, cooperative Behavior: good eye contact Speech: regular rate and tone Mood: "okay" Affect: congruent to mood Thought Process: linear Thought Content: denies SI/HI's and AVH's Motor Activity: sitting up in bed Cognition: A/Ox3 Insight: fair Judgment: fair Results Result Diagrams: 08/19/16 08:45 08/19/16 08:45 All other labs normal. Assessment and Plan Assessment and plan: Impression: Substance Use DO. Patient is a 25-year-old female with a history of drug abuse presenting status post heroin overdose. Today patient is calm and cooperative during the assessment. She stated that she went to [facility] to get help for her drug addiction to multiple substances. Per the ER note, patient injected heroin into her arm prior to being assessed at [facility]. She denies injecting heroin in her arm before her assessment at [facility], stating, "I did not do that." Patient denies SI/HI's and AVH' s. Positive for opiates, marijuana, amphetamines, cocaine, and benzos. No acute withdrawals noted. Patient is no threat to self. Recommendation/Plan: Continue CIWA. Outpatient rehab services given to patient for [place] local area ([place] Patient plan to check herself into a long goods drier rehab treatment facility once discharged. Discussed generalized coping skills. Also, we discussed how important it is to abstain from recreational drug use.
[2016-08-20] MEDS: TYLENOL #3 PO PRN (22:13)
[2016-08-21 04:07] VITALS: BP 131/72
--- NOTE | 2016-08-21 07:13 | Discharge Summary ---
Providers - Providers Date of Admission: 08/18/16 07:38 Attending physician: BA LUKE MD 08/19/16 09:34 Consult to Dietitian/Nutrition [CONS] Routine Physician Instructions: Reason For Exam: Reason for Consult: Malnutrition 08/19/16 10:24 Consult to Mental Health [CONS] Routine Reason For Exam: 1013 Place consult to:: Luis Carlos Notified:: Luis Carlos [phone] Phone number called:: [phone] Was contact made?: Yes If yes, spoke with:: Luis Carlos Time called:: 10:24 Comment:: Rebecca spoke to Luis Carlos Primary care physician: PUBLIC SAFETY DIRECTOR Hospitalization Condition: Stable Hospital course: 25-year-old woman with a past medical history of heroine abuse, IV drug use who presented with fever and confusion 1. Gram Positive septicemia due to MRSA She was initially hypotensive, but responded to fluid resuscitation continue Abx, will need to be dc on zyvox as she cannot be trusted with PICC line given recent/ongoing IVDA Cardiology input appreciated Discussed with cardiothoracic surgery at [facility] Patient ultimately will need TV surgery but cannot be performed now Patient has to show signs of heroin abstinence before proceeding with valve surgery Patient has to go through rehab first, surgery will be performed after that 2. Acute endocarditis Due to MRSA Infectious disease consult appreciated, patient will need to go on oral Zyvox to complete treatment for endocarditis. We'll avoid PICC line due to ongoing IV drug abuse 3. Pneumonia Continue antibiotics as above 4. Metabolic encephalopathy Was most likely due to sepsis and drug intoxication, mentation improved prior to discharge. She was seen by psychiatry and taking of 1013, she was not viewed as a risk to herself. 5. Moderate malnutrition Nutrition consult encourage balanced diets 6. Hypokalemia Was repleted 7. Posttraumatic chest pain Chest x-ray did not reveal any fractures, she was given some analgesics 8. IV drug abuse/heroin abuse Patient was counseled in brief detail for greater than 20 minutes with her parents present, as this is her second bout of infectious endocarditis and she now has valvular damage. She was advised that she may go into florid heart failure and have permanent heart damage. She and her family verbalized understanding, and resources for outpatient detox clinic's weight given to her prior to discharge. She was discharged in the care of her father and mother She was given referrals to infectious disease clinic and cardiology clinic prior to discharge for outpatient follow-up DVT prophylaxis Lovenox Disposition: DISCHARGED TO HOME OR SELFCARE Time spent for discharge: 35 minutes Core Measure Documentation - Palliative Care Palliative Care/ Comfort Measures: Not Applicable - Core Measures Any of the following diagnoses?: none Exam - Constitutional Vitals: Temp Pulse Resp BP Pulse Ox 99 F 61 18 131/72 95 08/21/16 04:00 08/21/16 04:00 08/21/16 04:00 08/21/16 04:00 08/21/16 04:00 General appearance: Present: no acute distress, well-nourished - EENT Eyes: Present: PERRL ENT: hearing intact, clear oral mucosa - Neck Neck: Present: supple, normal ROM - Respiratory Respiratory effort: normal Respiratory: bilateral: CTA - Cardiovascular Heart Sounds: Present: S1 & S2. Absent: rub, click - Extremities Extremities: pulses symmetrical, No edema Peripheral Pulses: within normal limits - Abdominal General gastrointestinal: Present: soft, non-tender, non-distended, normal bowel sounds Female genitourinary: Present: normal - Integumentary Integumentary: Present: clear, warm, dry - Musculoskeletal Musculoskeletal: gait normal, strength equal bilaterally - Psychiatric Psychiatric: appropriate mood/affect, intact judgment & insight - Neurologic Neurologic: CNII-XII intact, moves all extremities Plan Follow up with: PRIMARY MD ARAM [Primary Care Provider] - 7 Days RICHARD BOBBY MD [Staff Physician] - 7 Days EVA MOLINA MD [Staff Physician] - 7 Days Prescriptions: Linezolid 600 mg PO DAILY #60 tablet
--- NOTE | 2016-08-21 09:31 | XRay Report ---
AP CHEST: HISTORY: chest pain Patchy bilateral lung densities have decreased by 50% since the exam 2 days ago. No new areas of consolidation are identified. No pleural effusion or pneumothorax. Heart size is at the upper limits of normal. Normal pulmonary vascularity. The thoracic cage is grossly intact. IMPRESSION: Improving bilateral lung opacities since the exam 2 days ago.
[2016-08-21] MEDS: TYLENOL #3 PO PRN (09:41)
[2016-08-21] MEDS: LOVENOX SUB-Q SCH (09:41)
[2016-08-21] MEDS: ATIVAN IV PRN (09:42)
--- NOTE | 2016-08-21 09:45 | Progress Note ---
Assessment and Plan 1. Tricuspid valve endocarditis 2. Severe tricuspid regurgitation 3. Polysubstance abuse with intravenous drug abuse 4. MRSA bacteremia Plan. Continue antibiotic treatment for 6 weeks. Reevaluation by cardiothoracic surgery after completion of antibiotic treatment for tricuspid valve repair. Subjective Date of service: 08/21/16 Principal diagnosis: MRSA bacteremia Interval history: No cardiac complains Objective Vital Signs Temp Pulse Pulse Resp Resp BP Pulse Ox 08/21/16 04:00 99 F 61 18 131/72 95 08/21/16 00:26 99.1 F 74 18 115/73 95 08/20/16 22:39 100 08/20/16 22:13 20 08/20/16 22:00 77 18 08/20/16 20:31 20 08/20/16 20:00 98.3 F 57 L 22 114/76 94 08/20/16 18:31 98.2 F 80 18 118/71 97 08/20/16 14:35 98.0 F 18 128/80 97 08/20/16 10:00 66 - Physical Examination General: Appears Well, No Apparent Distress HEENT: Positive: PERRL Neck: Positive: trachea midline Cardiac: Positive: Regular Rate, S1/S2, Systolic Murmur, PMI, Laterally Displaced Lungs: Positive: clear to auscultation, No Wheeze, Rales, Rhonchi Abdomen: Positive: Unremarkable, Soft Extremities: Absent: edema
== END 2016-08-21 10:45 | disposition home or self-care (01) | DRG 871 ==
LOC: ED 00:32 → CC1 07:38 → 4A 15:56
PROVIDERS: ADMIT Hospitalist; ATTEND Internal Medicine
DX: A41.02 Sepsis due to Methicillin resistant Staphylococcus aureus (principal); J18.9 Pneumonia, unspecified organism; G93.41 Metabolic encephalopathy; I33.0 Acute and subacute infective endocarditis; E44.0 Moderate protein-calorie malnutrition; T40.1X1A Poisoning by heroin, accidental (unintentional), initial encounter; F19.10 Other psychoactive substance abuse, uncomplicated; F17.200 Nicotine dependence, unspecified, uncomplicated; F10.10 Alcohol abuse, uncomplicated; Y92.89 Other specified places as the place of occurrence of the external cause; D64.9 Anemia, unspecified; Z68.22 Body mass index [BMI] 22.0-22.9, adult; E87.6 Hypokalemia; F11.10 Opioid abuse, uncomplicated; G89.18 Other acute postprocedural pain; T50.905A Adverse effect of unspecified drugs, medicaments and biological substances, initial encounter; I36.1 Nonrheumatic tricuspid (valve) insufficiency
CPT/HCPCS: 36415; 71010; 80048; 80053; 80307; 80320; 81001; 82140; 82550; 84703; 85025; 85610; 85730; 86403; 86705; 86706; 86803; 87040; 87076; 87086; 87186; 87806; 93005; 93010; 93306; 93312; 93320; 93325; 96361; 96365; 96367; 96372; 96375; C9113; G0480; J0878; J1170; J1580; J1644; J1650; J2060; J2250; J2543; J2704; J3010; J3370; J7030; J7040; J7042; J7050